=== PATIENT | male | born 1955 | race Caucasian/White ===

== ENCOUNTER → 2016-09-17 | Outpatient (CLI) | payer BC ==
[~2016-09-17] VITALS: Ht 188 cm; Wt 104.7 kg
[~2016-09-17] MED LIST: ASPI-435 PO; ATOR-24 PO; LEVO-14 PO; METO25TA56 PO; MULT-884 PO; NITR0.4S UT; POTA1TAB PO; RIVA1TAB4 PO; SIMV20TA5 PO
[2016-09-17 16:16] VITALS: BP 145/82; PULSE 55; Ht 188 cm; Wt 104.7 kg
== END | disposition home or self-care (01) ==
LOC: C.NEUR 14:57
PROVIDERS: ATTEND Internal Medicine Pulmonary Disease
DX: G47.30 Sleep apnea, unspecified (principal); J30.9 Allergic rhinitis, unspecified; I48.91 Unspecified atrial fibrillation

== ENCOUNTER → 2016-10-02 | Outpatient (CLI) | payer BC ==
[2016-10-02 12:57] LABS: MEAN CELL VOLUME 88.5 fL (80-100); MEAN CORPUSCULAR HEMOGLOBIN 29.8 pg (25-34); MEAN CORPUSCULAR HGB CONC 33.6 g/dl (32-36); MEAN PLATELET VOLUME 9.5 fL (7.4-10.4); PLATELET COUNT 225 K/uL (130-400); RED BLOOD COUNT 4.97 M/uL (4.7-6.1); WHITE BLOOD COUNT 5.13 K/uL (4.8-10.8)
[2016-10-02 13:07] LABS: CALCIUM 9.1 mg/dl (8.5-10.1)
[2016-10-02 13:14] LABS: ALT/SGPT 29 U/L (12-78); AST/SGOT 22 U/L (15-37); BLOOD UREA NITROGEN 16 mg/dl (7-18); BUN/CREATININE RATIO 13.1 (10-20); CARBON DIOXIDE 24 mmol/L (21-32); CHLORIDE 107 mmol/L (98-107); GLUCOSE 112 mg/dl (70-99); POTASSIUM 3.7 mmol/L (3.5-5.1); SODIUM 139 mmol/L (136-145)
== END | disposition home or self-care (01) ==
LOC: C.LABPVFM 10:36
PROVIDERS: ATTEND Internal Medicine Cardiovascular Disease
DX: E78.5 Hyperlipidemia, unspecified (principal); I48.91 Unspecified atrial fibrillation; I25.10 Atherosclerotic heart disease of native coronary artery without angina pectoris

== ENCOUNTER → 2017-05-11 | Outpatient (CLI) | payer OTHER ==
[2017-05-11 17:40] LABS: HEMATOCRIT 47.6 % (42-52); HEMOGLOBIN 16.2 g/dL (14.0-18.0); MEAN CELL VOLUME 91.2 fL (80-100); MEAN PLATELET VOLUME 9.9 fL (7.4-10.4); PLATELET COUNT 188 K/uL (130-400); RED CELL DISTRIBUTION WIDTH CV 13.5 % (11.5-14.5); RED CELL DISTRIBUTION WIDTH SD 44.6 fL (36.4-46.3)
[2017-05-11 19:23] LABS: ALT/SGPT 42 U/L (12-78); AST/SGOT 29 U/L (15-37); BLOOD UREA NITROGEN 17 mg/dl (7-18); CALCIUM 9.4 mg/dl (8.5-10.1); CARBON DIOXIDE 25 mmol/L (21-32); CHOLESTEROL 160 mg/dl (0-200); CREATININE 1.12 mg/dl (0.60-1.40); GLUCOSE 89 mg/dl (70-99); POTASSIUM 4.3 mmol/L (3.5-5.1); SODIUM 137 mmol/L (136-145)
[2017-05-11 19:26] LABS: LDL CHOLESTEROL CALCULATED 86 mg/dl
== END | disposition home or self-care (01) ==
LOC: C.LABPVFM 11:55
PROVIDERS: ATTEND Internal Medicine Cardiovascular Disease
DX: I48.91 Unspecified atrial fibrillation (principal); I77.810 Thoracic aortic ectasia; Z79.01 Long term (current) use of anticoagulants; I35.1 Nonrheumatic aortic (valve) insufficiency; I25.10 Atherosclerotic heart disease of native coronary artery without angina pectoris

== ENCOUNTER → 2017-09-20 | Outpatient (CLI) | payer OTHER ==
[~2017-09-20] VITALS: Ht 188 cm; Wt 105.3 kg
[2017-09-20 16:03] VITALS: BP 119/71; PULSE 54; Ht 188 cm; Wt 105.3 kg
== END | disposition home or self-care (01) ==
LOC: C.NEUR 15:03
PROVIDERS: ATTEND Internal Medicine Pulmonary Disease
DX: G47.30 Sleep apnea, unspecified (principal); I48.91 Unspecified atrial fibrillation; J30.9 Allergic rhinitis, unspecified

== ENCOUNTER 2020-04-15 22:13 | Observation (INO) ==
[2020-04-15] MEDS ORDERED: SODIUM CHLORIDE 0.9% 1000ML 1,000 ML IV ONE (22:25)
[2020-04-15] MEDS ORDERED: dilTIAZem HCl 5 MG/ML 5 ML VIAL IV STA (22:25)
[2020-04-15] MEDS ORDERED: STAT IV Infusion **Titration per Protocol STA (22:25)
[2020-04-15] MEDS ORDERED: dilTIAZem HCL 125 MG in DEXTROSE 5% 100 ML IV SCH (22:30)
[2020-04-15 22:35] LABS: Basophils # (auto) 0.01 K/uL (0-0.2); Basophils % (auto) 0.2 %; Eosinophils # (auto) 0.07 K/uL (0-0.5); Eosinophils % (auto) 1.2 %; Hematocrit (blood only) 46.7 % (42-52); Hemoglobin 16.2 g/dL (14.0-18.0); Immature Granulocytes # (auto) 0.02 K/uL (0.00-0.02); Immature Granulocytes % (auto) 0.3 %; Lymphocytes # (auto) 2.47 K/uL (1.2-3.4); Lymphocytes % (auto) 41.2 %; Mean Corpuscular Hgb Conc 34.7 g/dL (32-36); Mean Corpuscular Volume 89.3 fL (80-100); Mean Platelet Volume 10.8 fL (7.4-10.4); Monocytes # (auto) 0.57 K/uL (0.11-0.59); Monocytes % (auto) 9.5 %; Neutrophils # (auto) 2.85 K/uL (1.4-6.5); Neutrophils % (auto) 47.6 %; Platelet Count 195 K/uL (130-400); RDW Standard Deviation 42.5 fL (36.4-46.3); Red Blood Count 5.23 M/uL (4.7-6.1); White Blood Count 5.99 K/uL (4.8-10.8)
--- NOTE | 2020-04-15 22:38 | Emergency Department Note ---
Impression & Plan Atrial fibrillation with rapid ventricular response, Anticoagulant long-term use, Elevated troponin ED Provider Note NAME: YELITZA JACOBS AGE: 64 SEX: M : 1955 ARRIVES VIA: Ambulance INFORMANT: Patient ED PROVIDER(S): Chemo Zhao DO CHIEF COMPLAINT: Palpitations HPI: Patient is a 64-year-old male with a past medical history of A. fib, hyperlipidemia, dilated aortic root and CAD the presents the ER for dizziness and feeling his heart race. This occurred after playing tennis on the drive home. IV was established blood work was obtained. He has not had this since 2006 after he had an ablation. He has had a total of 2 ablations. He has been taking his rivaroxaban. He denies any headache or change in vision. No chest pain or shortness of breath. He does feel his heart racing. He has no dizziness now. No nausea vomiting or diarrhea. No dysuria, urgency or frequency. He admits to upper respiratory symptoms which occurred last week and now he only has some sinus congestion as everything has been improving and he no longer has a cough. ROS: See above HPI for pertinent positives & negatives. A total of 10 systems reviewed and were otherwise negative. PAST MEDICAL HISTORY:See Below PAST SURGICAL HISTORY:See Below FAMILY HISTORY:See Below SOCIAL HISTORY:See Below HOME MEDICATIONS:See Below ALLERGIES:See Below VITALS:See Below PHYSICAL EXAMINATION: GENERAL: Sitting up in bed, alert, well appearing, well nourished, no distress, non-toxic EYE EXAM: normal conjunctiva. OROPHARYNX: Mask in place LUNGS: Clear to auscultation. Normal chest wall mechanics HEART: Tachycardic and irregular regular, S1 normal and S2 normal ABDOMEN: abdomen soft, non-tender, normo-active bowel sounds, no masses, no rebound or guarding. BACK: Back is symmetrical on inspection and there is no deformity, no midline tenderness, no CVA tenderness. SKIN: no rashes and no bruising UPPER EXTREMITIES: upper extremities are grossly normal. LOWER EXTREMITIES: No pitting edema. NEURO EXAM: Normal sensorium, cranial nerves II-XII grossly intact, normal spe ech, no gross weakness of arms, no gross weakness of legs. MEDICAL DECISION MAKING: Patient is a 64-year-old male who presents the ER with past medical history of 2 ablations that feels as though he is in A. fib. Upon presentation he is found to be in A. fib with RVR. I received medical command call. We gave him a bolus of Cardizem via medical command and then rebolused him with a dose of Cardizem while in the ER and placed on a Cardizem drip. Heart rate trended down to the 70s to 80s. IV was established blood work was obtained. Labs show no significant leukocytosis or anemia. INR unremarkable. BMP with slightly elevated glucose. Troponin was elevated 0.084. He had respiratory symptoms last week and not improving and is Covid positive. Chest x-ray with multifocal pneumonia in the right lower lobe. He has no respiratory symptoms. EKG did show A. fib RVR. He was updated at bedside. Discussed with the hospitalist for further evaluation. Triage Nursing notes reviewed. Prior medical records reviewed Vital Signs: reviewed and remarkable for tachy and HTN Differential diagnosis: Differential diagnoses includes but is not limited to acute coronary syndrome, myocardial infarction, pericarditis, pulmonary embolus, aortic dissection, pneumonia, pneumothorax, musculoskeletal, shingles, esophageal. ER treatment provided: See below Diagnostics interpreted by me: ECG: A. fib RVR weight of 159 Normal axis No PVCs QTC 465 Cardiac Monitoring: An order was placed for continuous cardiac monitoring. The monitor shows a rate of 154 with A. fib RVR rhythm. Laboratory studies: As stated above and show below. Imaging studies: Portable AP upright 1 view of the chest shows infiltrates in the right lower lobe. No pneumothorax Consultation(s): Discussed with Dr. Sergo Parker for further evaluation ED COURSE: Procedures: none Critical Care: I have personally spent 32 minutes of critical care time in the direct management of this patient. This includes bedside care, interpretation of diagnostic studies, and testing, discussion with consultants, patient, and family members, and other required patient management activities. This 32 minutes is in excess of all separately billable procedures. Past Med/Surg History Medical History (Updated 04/16/20 @ 00:28 by Chemo Zhao DO) Anticoagulant long-term use Aortic regurgitation Atrial fibrillation CAD in [place] artery Dilated aortic root Hyperlipidemia (06/11/12) Severe obstructive sleep apnea Surgical History S/P tonsillectomy Status post catheter ablation of atrial fibrillation Family History Family/Other No pertinent family history Social History Smoking Status: Never smoker Second Hand Exposure: No; Preferred Language: Hong Konger Feels Safe at Home: Yes Allergies Allergies Allergy/AdvReac Type Severity Reaction Status Date / Time amiodarone AdvReac Severe . Verified 04/16/20 00:03 Home Meds Home Medications Medication Instructions Recorded Confirmed multivitamin 1 tab PO DAILY 12/20/18 04/16/20 nitroglycerin 0.4 mg sublingual 0.4 mg SL Q5M PRN #25 tab 12/20/18 04/16/20 tablet aspirin [Aspirin Low Dose] 81 mg PO DAILY 04/16/20 04/16/20 Previous Rx's Medication Instructions Recorded levocetirizine 5 mg tablet 5 mg PO DAILY #90 tab 08/09/19 rivaroxaban 20 mg tablet 20 mg PO DAILY #90 tab 11/22/19 montelukast 10 mg tablet 10 mg PO DAILY #90 tab 12/07/19 atorvastatin 40 mg tablet 40 mg PO QPM #90 tab 12/25/19 metoprolol tartrate 25 mg tablet 25 mg PO BID #180 tab 02/03/20 Results & Data (ED) Vital Signs Vital Signs - 24 hr 04/15/20 22:33 04/15/20 23:00 04/15/20 23:01 Temperature 36.8 C Temperature Source Oral Pulse Rate 132 H 112 H 114 H Pulse Rate from SpO2 Sensor 110 H 93 H Respiratory Rate 24 14 12 Respiratory Effort / Characteristics Non-Labored Spontaneous Respiratory Depth Normal Blood Pressure 151/132 H 73/67 L 111/70 Blood Pressure Mean 138 70 103 Pulse Oximetry 96 95 95 Oxygen Delivery Method Room Air Sepsis Recent Fever Within 48 Hours No Sepsis New/Unexplained Change in Mental Status No Sepsis Action Taken by Nursing No Action Required 04/15/20 23:02 04/15/20 23:15 04/15/20 23:26 Temperature Temperature Source Pulse Rate 90 79 126 H Pulse Rate from SpO2 Sensor 117 H 78 Respiratory Rate 12 18 20 Respiratory Effort / Characteristics Respiratory Depth Blood Pressure 102/70 Blood Pressure Mean 79 Pulse Oximetry 95 95 Oxygen Delivery Method Sepsis Recent Fever Within 48 Hours Sepsis New/Unexplained Change in Mental Status Sepsis Action Taken by Nursing Laboratory Data Result diagrams: 04/15/20 22:22 04/15/20 22:22 Lab Results 04/15/20 04/15/20 04/15/20 Range/Units 22:22 22:22 22:22 WBC 5.99 (4.8-10.8) K/uL RBC 5.23 (4.7-6.1) M/uL Hgb 16.2 (14.0-18.0) g/dL Hct 46.7 (42-52) % MCV 89.3 (80-100) fL MCH 31.0 (25-34) pg MCHC 34.7 (32-36) g/dL RDW Std Deviation 42.5 (36.4-46.3) fL RDW Coeff of Evi 13.0 (11.5-14.5) % Plt Count 195 (130-400) K/uL MPV 10.8 H (7.4-10.4) fL Immature Gran % (Auto) 0.3 % Neut % (Auto) 47.6 % Lymph % (Auto) 41.2 % [place] % (Auto) 9.5 % Eos % (Auto) 1.2 % Baso % (Auto) 0.2 % Neut # (Auto) 2.85 (1.4-6.5) K/uL Lymph # (Auto) 2.47 (1.2-3.4) K/uL [place] # (Auto) 0.57 (0.11-0.59) K/uL Eos # (Auto) 0.07 (0-0.5) K/uL Baso # (Auto) 0.01 (0-0.2) K/uL Immature Gran # (Auto) 0.02 (0.00-0.02) K/uL PT 11.0 (9.0-12.0) Seconds INR 1.0 (0.9-1.1) APTT 29.6 (21.0-31.0) Seconds PTT Ratio 1.1 Sodium 138 (136-145) mmol/L Potassium (3.5-5.1) mmol/L Chloride 107 (98-107) mmol/L Carbon Dioxide 22 (21-32) mmol/L Anion Gap 10.0 (3-11) BUN 19 H (7-18) mg/dl Creatinine 1.12 (0.6-1.4) mg/dl Est Cr Clr Drug Dosing 82.8 ml/min Est GFR ( Amer) 78.9 Est GFR (Non-Af Amer) 68.1 BUN/Creatinine Ratio 17.1 (10-20) Glucose 156 H (70-99) mg/dl Calcium 9.2 (8.5-10.1) mg/dl Total Bilirubin 0.7 (0.2-1) mg/dl AST (15-37) U/L ALT 33 (12-78) U/L Alkaline Phosphatase 117 (45-117) U/L Troponin I 0.084 H* (0-0.045) ng/ml Total Protein 7.9 (6.4-8.2) gm/dl Albumin 3.6 (3.4-5.0) gm/dl Globulin 4.3 H (2.5-4.0) gm/dl Albumin/Globulin Ratio 0.8 L (0.9-2) Lipase 134 (73-393) U/L COVID-19 Eval Order SARS-CoV-2, RNA, NAAT (NEGATIVE) 04/15/20 04/15/20 Range/Units 22:23 22:23 WBC (4.8-10.8) K/uL RBC (4.7-6.1) M/uL Hgb (14.0-18.0) g/dL Hct (42-52) % MCV (80-100) fL MCH (25-34) pg MCHC (32-36) g/dL RDW Std Deviation (36.4-46.3) fL RDW Coeff of Evi (11.5-14.5) % Plt Count (130-400) K/uL MPV (7.4-10.4) fL Immature Gran % (Auto) % Neut % (Auto) % Lymph % (Auto) % [place] % (Auto) % Eos % (Auto) % Baso % (Auto) % Neut # (Auto) (1.4-6.5) K/uL Lymph # (Auto) (1.2-3.4) K/uL [place] # (Auto) (0.11-0.59) K/uL Eos # (Auto) (0-0.5) K/uL Baso # (Auto) (0-0.2) K/uL Immature Gran # (Auto) (0.00-0.02) K/uL PT (9.0-12.0) Seconds INR (0.9-1.1) APTT (21.0-31.0) Seconds PTT Ratio Sodium (136-145) mmol/L Potassium (3.5-5.1) mmol/L Chloride (98-107) mmol/L Carbon Dioxide (21-32) mmol/L Anion Gap (3-11) BUN (7-18) mg/dl Creatinine (0.6-1.4) mg/dl Est Cr Clr Drug Dosing ml/min Est GFR ( Amer) Est GFR (Non-Af Amer) BUN/Creatinine Ratio (10-20) Glucose (70-99) mg/dl Calcium (8.5-10.1) mg/dl Total Bilirubin (0.2-1) mg/dl AST (15-37) U/L ALT (12-78) U/L Alkaline Phosphatase (45-117) U/L Troponin I (0-0.045) ng/ml Total Protein (6.4-8.2) gm/dl Albumin (3.4-5.0) gm/dl Globulin (2.5-4.0) gm/dl Albumin/Globulin Ratio (0.9-2) Lipase (73-393) U/L [facility], RNA, NAAT POSITIVE A* (NEGATIVE) Administered Medications Discontinued Medications Diltiazem HCl (Diltiazem Hcl 5 Mg/Ml 5 Ml Vial) 15 mg IV NOW STA Stop: 04/15/20 22:26 Last Admin: 04/15/20 22:47 Dose: 15 mg Documented by: [id number] Cosigned by: [id number] Diltiazem HCl 125 mg/ Dextrose 125 mls @ 5 mls/hr IV .Q24H [facility]; Protocol Stop: 05/15/20 22:29 Last Admin: 04/15/20 22:47 Dose: 5 mg/hr, 5 mls/hr Documented by: [id number] Cosigned by: [id number] Sodium Chloride (Nss 1000ml) 1,000 mls @ 999 mls/hr IV .Q1H1M ONE Stop: 04/15/20 23:25 Last Admin: 04/15/20 22:47 Dose: 999 mls/hr Documented by: [id number] Miscellaneous (Stat Iv Infusion Titration Per Protocol) 1 ea N/A NOW STA Stop: 04/15/20 22:26 Last Admin: 04/15/20 22:48 Dose: Not Given Documented by: [id number] Discharge Plan Visit Data Chief Complaint: Cardiac Assessment Stated Complaint: TACHYCARDIA ED Provider: Chemo Zhao Discharge Problem: Atrial fibrillation with rapid ventricular response, Anticoagulant long-term use, Elevated troponin Forms Stand Alone Forms: [facility] Prescriptions Prescriptions: No Action levocetirizine 5 mg tablet 5 mg PO DAILY Qty: 90 RF: 3 rivaroxaban 20 mg tablet 20 mg PO DAILY Qty: 90 RF: 3 atorvastatin 40 mg tablet 40 mg PO QPM Qty: 90 RF: 3 metoprolol tartrate 25 mg tablet 25 mg PO BID Qty: 180 RF: 3 nitroglycerin 0.4 mg tablet, sublingual 0.4 mg SL Q5M PRN (Reason: chest pain) Qty: 25 RF: 0 multivitamin [Daily Multi-Vitamin] tablet 1 tab PO DAILY RF: 0 montelukast 10 mg tablet 10 mg PO DAILY Qty: 90 RF: 3 aspirin [Aspirin Low Dose] 81 mg Tablet,Delayed Release (Dr/Ec) 81 mg PO DAILY RF: 0
[2020-04-15 23:05] LABS: Albumin Globulin Ratio 0.8 (0.9-2); Albumin Level 3.6 gm/dl (3.4-5.0); BUN Creatinine Ratio 17.1 (10-20); Bilirubin,Total 0.7 mg/dl (0.2-1); Calcium 9.2 mg/dl (8.5-10.1); Creatinine Clr Calc Pharmacy 82.8 ml/min; Est GFR (African American) 78.9; Est GFR (Non-African American) 68.1; Globulin 4.3 gm/dl (2.5-4.0); Total Protein 7.9 gm/dl (6.4-8.2); Troponin I 0.084 ng/ml (0-0.045)
[2020-04-15 23:06] LABS: Partial Thromboplastin Ratio 1.1; Partial Thromboplastin Time 29.6 Seconds (21.0-31.0)
--- NOTE | 2020-04-16 00:56 | History & Physical Report ---
Date of Service April 16, 2020 Assessment & Plan (1) Atrial fibrillation with rapid ventricular response: Atrial fibrillation with rapid ventricular response/elevated troponin/CAD/long-term anticoagulant use/dilated aortic root- The patient will be admitted to telemetry for serial cardiac enzymes, serial EKG's, cardiac rhythm monitoring and a 2-D echocardiogram with Dopplers. Patient had been given Cardizem bolus and started on Cardizem drip 5 mg/h per the ED. Discontinue Cardizem drip Continue Xarelto 20 mg daily Resume metoprolol tartrate 25 mg p.o. twice daily, with as needed Lopressor 2.5 mg IV every 4 hours as needed heart rate greater than 110. Consult his instructor business education Dr. Covarrubias Present on Admission?: Yes (2) Lab test positive for detection of COVID-19 virus: Even though patient has not overtly symptomatic. His pulse ox is 94% on room air. Chest x-ray does suggest bilateral infiltrates. Will place on Decadron 6 mg IV every morning, with first dose now Suspect the physiologic stress this infection may have had tilted him over into A. fib with RVR Present on Admission?: Yes (3) Elevated troponin: See above Present on Admission?: Yes (4) Anticoagulant long-term use: See above Present on Admission?: Yes (5) CAD in [place] artery: See above Present on Admission?: Yes (6) Severe obstructive sleep apnea: CPAP at bedtime as needed Present on Admission?: Yes (7) Hyperlipidemia: Continue atorvastatin 40 mg every evening Present on Admission?: Yes (8) Allergic rhinitis: Continue levocetirizine Present on Admission?: Yes History of Present Illness Chief Complaint: The patient presents to the emergency department with palpitations Primary Care Provider: Waleska Shepherd MD The patient is a 64-year-old male with a past medical history including atrial fibrillation, hyperlipidemia, dilated aortic root, CAD, on chronic anticoagulation, severe ZOE, allergic rhinitis, and status post cardiac ablation in 2012. He presents to the emergency department with complaint of lightheadedness, dizziness and sensation of heart racing that occurred on his drive home after playing tennis. Reports he has not had any of these symptoms since his ablation in 2012. He has been taking his Xarelto as directed, he did take his metoprolol tartrate on time this morning. He has noted more sinus congestion than usual, and reports having to blow his nose hard this morning to clear his ears. Allergies Allergy/AdvReac Type Severity Reaction Status Date / Time amiodarone AdvReac Severe . Verified 04/16/20 00:03 Home Medications Medication Instructions Recorded Confirmed Type multivitamin 1 tab PO DAILY 12/20/18 04/16/20 History nitroglycerin 0.4 mg sublingual 0.4 mg SL Q5M PRN #25 tab 12/20/18 04/16/20 History tablet levocetirizine 5 mg tablet 5 mg PO DAILY #90 tab 08/09/19 04/16/20 Rx rivaroxaban 20 mg tablet 20 mg PO DAILY #90 tab 11/22/19 04/16/20 Rx montelukast 10 mg tablet 10 mg PO DAILY #90 tab 12/07/19 04/16/20 Rx atorvastatin 40 mg tablet 40 mg PO QPM #90 tab 12/25/19 04/16/20 Rx metoprolol tartrate 25 mg tablet 25 mg PO BID #180 tab 02/03/20 04/16/20 Rx aspirin [Aspirin Low Dose] 81 mg PO DAILY 04/16/20 04/16/20 History Past Med/Surg History Medical History (Updated 04/16/20 @ 04:05 by Sergo Pearson MD) Anticoagulant long-term use Aortic regurgitation Atrial fibrillation CAD in [place] artery Dilated aortic root Hyperlipidemia (06/11/12) Severe obstructive sleep apnea Surgical History S/P tonsillectomy Status post catheter ablation of atrial fibrillation Family History Family/Other No pertinent family history Social History Smoking Status: Never smoker Second Hand Exposure: No; Preferred Language: Syriac Feels Safe at Home: Yes Review of Systems Review of Systems: The patient denies chest pain, cough, lower extremity swell ing, sore throat, fevers, chills, sweats, fatigue, nausea, vomiting, diarrhea , constipation, abdominal pain, pelvic pain, blood in urine or stool, dysuria, urinary frequency or urgency, memory loss, loss of consciousness, rash, abnormal bruising or bleeding, imbalance, focal or generalized weakness, numbness or tingling in arms or legs, generalized arthralgias or myalgias, back or neck pain, or night sweats. The review of systems is otherwise negative other than for that already noted above, and at least 10 systems have been reviewed. Physical Exam Physical Exam: The patient is awake, alert and oriented 3, well developed and well nourished, normocephalic and atraumatic, lying in bed and in no acute distress. HEENT--PERRL, EOMI, mucous membranes and oropharynx normal. Neck--supple. No JVD. No bruits. Thyroid normal, trachea midline, no adenopathy. Heart--irregularly irregular no murmurs, rubs or gallops. Lungs--clear bilaterally, no respiratory distress, no accessory muscle use. Abdomen--normal bowel sounds and soft. Nontender. Nondistended, no hernias or masses, no organomegaly. Extremities--no cyanosis or clubbing. No edema. Dermatologic--normal skin turgor, normal color, no abnormal lymph nodes, no rash. Neurologic--cranial nerves II through XII grossly intact. Rheumatologic--normal range of motion. Psychiatric--normal affect. Results & Data Results & Data ([facility]) Vital Signs (Past 12 Hours) Vital Signs Temp Pulse Resp BP Pulse Ox 04/15/20 23:26 126 H 20 102/70 95 04/15/20 23:15 79 18 04/15/20 23:02 90 12 95 04/15/20 23:01 114 H 12 111/70 95 04/15/20 23:00 112 H 14 73/67 L 95 04/15/20 22:33 98.2 F 132 H 24 151/132 H 96 Laboratory Results Laboratory Results WBC 5.99 K/uL (4.8-10.8) 04/15/20 22:22 RBC 5.23 M/uL (4.7-6.1) 04/15/20 22:22 Hgb 16.2 g/dL (14.0-18.0) 04/15/20 22:22 Hct 46.7 % (42-52) 04/15/20 22:22 MCV 89.3 fL (80-100) 04/15/20 22:22 MCH 31.0 pg (25-34) 04/15/20 22: MCHC 34.7 g/dL (32-36) 04/15/20 22: RDW Std Deviation 42.5 fL (36.4-46.3) 04/15/20: RDW Coeff of Evi 13.0 % (11.5-14.5) 04/15/20 22: Plt Count 195 K/uL (130-400) 04/15/20: MPV 10.8 fL (7.4-10.4) H 04/15/20 22:22 Immature Gran % (Auto) 0.3 % 04/15/20: Neut % (Auto) 47.6 % 04/15/20: Lymph % (Auto) 41.2 % 04/15/20: [place] % (Auto) 9.5 % 04/15/20: Eos % (Auto) 1.2 % 04/15/20: Baso % (Auto) 0.2 % 04/15/20: Neut # (Auto) 2.85 K/uL (1.4-6.5) 04/15/20 22: Lymph # (Auto) 2.47 K/uL (1.2-3.4) 04/15/20 22:22 [place] # (Auto) 0.57 K/uL (0.11-0.59) 04/15/20 22: Eos # (Auto) 0.07 K/uL (0-0.5) 04/15/20: Baso # (Auto) 0.01 K/uL (0-0.2) 04/15/20: Immature Gran # (Auto) 0.02 K/uL (0.00-0.02) 04/15/20: PT 11.0 Seconds (9.0-12.0) 04/15/20: INR 1.0 (0.9-1.1) 04/15/20: APTT 29.6 Seconds (21.0-31.0) 04/15/20: PTT Ratio 1.1 04/15/20 22: Sodium 138 mmol/L (136-145) 04/15/20 22: Potassium 3.8 mmol/L (3.5-5.1) 04/16/20 00:18 Chloride 107 mmol/L (98-107) 04/15/20 22:22 Carbon Dioxide 22 mmol/L (21-32) 04/15/20 22:22 Anion Gap 10.0 (3-11) 04/15/20 22:22 BUN 19 mg/dl (7-18) H 04/15/20 22:22 Creatinine 1.12 mg/dl (0.6-1.4) 04/15/20 22:22 Est Cr Clr Drug Dosing 82.8 ml/min 04/15/20 22:22 Est GFR ( Amer) 78.9 04/15/20 22:22 Est GFR (Non-Af Amer) 68.1 04/15/20 22:22 BUN/Creatinine Ratio 17.1 (10-20) 04/15/20 22:22 Glucose 156 mg/dl (70-99) H 04/15/20 22:22 Calcium 9.2 mg/dl (8.5-10.1) 04/15/20 22:22 Total Bilirubin 0.7 mg/dl (0.2-1) 04/15/20 22:22 AST 29 U/L (15-37) 04/16/20 00:18 ALT 33 U/L (12-78) 04/15/20 22:22 Alkaline Phosphatase 117 U/L (45-117) 04/15/20 22:22 Troponin I 0.084 ng/ml (0-0.045) H* 04/15/20 22:22 Total Protein 7.9 gm/dl (6.4-8.2) 04/15/20 22:22 Albumin 3.6 gm/dl (3.4-5.0) 04/15/20 22:22 Globulin 4.3 gm/dl (2.5-4.0) H 04/15/20 22:22 Albumin/Globulin Ratio 0.8 (0.9-2) L 04/15/20 22:22 Lipase 134 U/L (73-393) 04/15/20 22:22 COVID-19 Eval Order Covid19 [facility] 04/15/20 22:23 SARS-CoV-2, RNA, NAAT POSITIVE (NEGATIVE) A* 12/08/20 22:23 Blood Type O Positive 04/16/20 00:18 Antibody Screen NEGATIVE 04/16/20 00:18 Code Status & VTE Plan Code Status Full code VTE Prophylaxis Plan VTE Prophylaxis will be ordered: Yes PG Care Time/CCT Total # of Minutes Spent Total Time Spent with Patient: Total time spent is greater than 50% in coordination of care (as documented) at patient's floor/unit and/or counseling patient: Coding Level of Care Code 79551 OBS Care - Level 3 Diagnoses Atrial fibrillation with rapid ventricular response I48.91 Lab test positive for detection of COVID-19 virus U07.1 Elevated troponin R77.8 Anticoagulant long-term use Z79.01 CAD in [place] artery I25.10 Severe obstructive sleep apnea G47.33 Hyperlipidemia E78.5 Allergic rhinitis J30.9
[2020-04-16 01:03] LABS: Potassium 3.8 mmol/L (3.5-5.1)
[2020-04-16] MEDS ORDERED: DEXAMETHASONE SOD INJ 10 MG/ML VIAL IV STA (01:03)
[2020-04-16] MEDS ORDERED: METOPROLOL TARTRATE 1 MG/ML VIAL IV ONE (02:11)
[2020-04-16] MEDS ORDERED: METOPROLOL TARTRATE 1 MG/ML VIAL IV PRN (02:19)
[2020-04-16] MEDS ORDERED: METOPROLOL TARTRATE 25 MG TAB PO ONE (02:30)
--- NOTE | 2020-04-16 06:51 | XRay Report ---
XR chest 1V portable HISTORY: 64 years-old Male Chest Pain acute atypical chest pain COMPARISON: Chest radiograph 02/28/2013 TECHNIQUE: Portable AP view of the chest FINDINGS: Cardiac silhouette is upper limits of normal in size. No pneumothorax, pleural effusion or overt pulm onary edema. Subtle ill-defined right lung base opacities. Degenerative changes of the shoulders and spine. IMPRESSION: Subtle ill-defined right lung base opacities may be secondary to summation density howeve r atelectasis or pneumonitis could appear similarly. ACT 112: Negative or not required by law. The above report was generated using voice recognition software. It may contain grammatical, syntax o r spelling errors. Electronically signed by: Thaddeus Moffett M.D. 04/16/2020 6:49 AM
[2020-04-16] MEDS ORDERED: DEXAMETHASONE SOD INJ 4 MG/ML VIAL IV SCH (09:00)
[2020-04-16] MEDS ORDERED: DEXAMETHASONE SOD PHOSPHATE 6 MG in SYRINGE 0 ML IV SCH (09:00)
--- NOTE | 2020-04-16 10:24 | XRay Report ---
XR chest 1V portable CLINICAL HISTORY: Abnormal chest x-ray. COVID POSITIVE PATIENT COMPARISON STUDY: 04/15/2020 FINDINGS: The cardiac and mediastinal contours remain stable. The previously queried right midlung zo ne opacity is not identified on the current study. There is no focal pulmonary consolidation. There i s no failure. There are no pleural effusions.[ IMPRESSION: No active disease in the chest. ACT 112: Negative or not required by law. Electronically signed by: Carlos Chance M.D. 04/16/2020 10:22 AM
[2020-04-16 10:45] LABS: BUN Creatinine Ratio 15.5 (10-20); Calcium 9.1 mg/dl (8.5-10.1); Creatinine Clr Calc Pharmacy 98.7 ml/min; Est GFR (African American) 97.5; Est GFR (Non-African American) 84.2; Magnesium 2.4 mg/dl (1.8-2.4); Potassium 4.2 mmol/L (3.5-5.1)
[2020-04-16 10:56] LABS: Troponin I 0.165 ng/ml (0-0.045)
--- NOTE | 2020-04-16 13:51 | Electrocardiogram Report ---
Test Reason : Blood Pressure : / mmHG Vent. Rate : 159 BPM Atrial Rate : 166 BPM P-R Int : 000 ms QRS Dur : 090 ms QT Int : 286 ms P-R-T Axes : 000 004 044 degrees QTc Int : 465 ms Probable Sinus tachycardia Possible Inferior infarct , age undetermined Abnormal ECG When compared with ECG of 01-MAR-2013 06:32, Vent. rate has increased BY 103 BPM Borderline criteria for Inferior infarct are now Present Confirmed by Dylan Porras ([id number]) on 04/16/2020 1:50:39 PM Referred By: REFERRED SELF Confirmed By:Dylan Porras
--- NOTE | 2020-04-16 13:53 | Electrocardiogram Report ---
Test Reason : Blood Pressure : / mmHG Vent. Rate : 071 BPM Atrial Rate : 071 BPM P-R Int : 210 ms QRS Dur : 098 ms QT Int : 384 ms P-R-T Axes : 062 014 031 degrees QTc Int : 417 ms Sinus rhythm with 1st degree A-V block Inferior infarct (cited on or before 15-APR-2020) Abnormal ECG When compared with ECG of 15-APR-2020 22:20, (unconfirmed) Sinus rhythm has replaced Atrial fibrillation Vent. rate has decreased BY [address] no longer depressed in Lateral leads Confirmed by Dylan Porras ([id number]) on 04/16/2020 1:53:18 PM Referred By: REFERRED SELF Confirmed By:Dylan Porras
[2020-04-16] MEDS ORDERED: NITROGLYCERIN SL 0.4 MG/TAB TAB SL PRN ×2 (14:18)
[2020-04-16] MEDS ORDERED: ONDANSETRON INJ 2 MG/ML 2 ML VIAL IV PRN (14:18)
[2020-04-16] MEDS ORDERED: ALUMINUM/MAGNESIUM SUSP 30 ML UDC PO PRN (14:18)
[2020-04-16] MEDS ORDERED: METOPROLOL TARTRATE 1 MG/ML VIAL IV SCH (14:18)
[2020-04-16] MEDS ORDERED: MAGNESIUM HYDROXIDE SUSP 30 ML UDC PO PRN (14:18)
[2020-04-16] MEDS ORDERED: ACETAMINOPHEN 325 MG TAB PO PRN (14:18)
[2020-04-16] MEDS ORDERED: METOPROLOL TARTRATE 25 MG TAB PO SCH ×2 (14:18→15:00)
[2020-04-16] MEDS ORDERED: MONTELUKAST SODIUM 10 MG TABLET PO SCH (15:00)
[2020-04-16] MEDS ORDERED: ASPIRIN 81 MG ECTAB PO SCH (15:00)
[2020-04-16] MEDS ORDERED: MULTIVITAMIN TAB PO SCH (15:00)
[2020-04-16] MEDS ORDERED: RIVAROXABAN 20 MG TAB PO SCH (15:00)
[2020-04-16] MEDS ORDERED: CETIRIZINE HCL 10 MG TABLET PO SCH (15:00)
--- NOTE | 2020-04-16 17:33 | Discharge Summary ---
Date of Service April 16, 2020 Admission HPI Per Admitting Provider The patient is a 64-year-old male with a past medical history including atrial fibrillation, hyperlipidemia, dilated aortic root, CAD, on chronic anticoagulation, severe ZOE, allergic rhinitis, and status post cardiac ablation in 2012. He presents to the emergency department with complaint of lightheadedness, dizziness and sensation of heart racing that occurred on his drive home after playing tennis. Reports he has not had any of these symptoms since his ablation in 2012. He has been taking his Xarelto as directed, he did take his metoprolol tartrate on time this morning. He has noted more sinus congestion than usual, and reports having to blow his nose hard this morning to clear his ears. Admission Exam Per Admitting Provider The patient is awake, alert and oriented 3, well developed and well nourished, normocephalic and atraumatic, lying in bed and in no acute distress. HEENT--PERRL, EOMI, mucous membranes and oropharynx normal. Neck--supple. No JVD. No bruits. Thyroid normal, trachea midline, no adenopathy. Heart--irregularly irregular no murmurs, rubs or gallops. Lungs--clear bilaterally, no respiratory distress, no accessory muscle use. Abdomen--normal bowel sounds and soft. Nontender. Nondistended, no hernias or masses, no organomegaly. Extremities--no cyanosis or clubbing. No edema. Dermatologic--normal skin turgor, normal color, no abnormal lymph nodes, no rash. Neurologic--cranial nerves II through XII grossly intact. Rheumatologic--normal range of motion. Psychiatric--normal affect. Principal Diagnosis Atrial fibrillation with rapid ventricular response COVID-19 positive Discharge Exam GENERAL : No acute distress EYES: No icterus, gaze conjugate NOSE: No evidence of epistaxis MOUTH: No lesions or candidiasis. Mucosa is moist NECK: Supple LUNGS: CTA B/L, no wheezes, rales or rhonchi. Chest x-ray reviewed as well which is also clear HEART: Regular, rate controlled ABDOMEN: Soft, NT, ND, BS Present EXTREMITIES: No LE edema, pedal pulses intact NEURO: A&OX3 Discharge Data Allergies Allergy/AdvReac Type Severity Reaction Status Date / Time amiodarone AdvReac Severe . Verified 04/16/20 00:03 Consultations 04/15/20 23:16 ED Decision to Admit Stat 04/16/20 14:18 Consult Cardiology Routine Consult Case Management - Discharge Planning Routine Procedures Performed XR chest 1V portable 04/16/2020 CLINICAL HISTORY: Abnormal chest x-ray. COVID POSITIVE PATIENT COMPARISON STUDY: 04/15/2020 FINDINGS: The cardiac and mediastinal contours remain stable. The previously queried right midlung zone opacity is not identified on the current study. There is no focal pulmonary consolidation. There is no failure. There are no pleural effusions.[ IMPRESSION: No active disease in the chest. Electronically signed by: Carlos Chance M.D. 04/16/2020 10:22 AM Ordered Studies 04/15/20 22:22 04/16/20 10:08 04/15/20 04/16/20 04/16/20 22:22 10:08 15:39 Troponin I 0.084 H* 0.165 H* 0.141 H* Hospital Course (1) Atrial fibrillation with rapid ventricular response: Patient presented with atrial fibrillation with a heart rate around 160 He was started on diltiazem and continued on his Lopressor 25 mg p.o. twice daily A little bit after 2 AM he converted to normal sinus rhythm after receiving his Lopressor and remained in normal sinus rhythm until discharge On discharge the patient's metoprolol tartrate was increased from 25 mg p.o. twice daily to 37.5 mg p.o. twice daily. The patient was encouraged to follow- up with Dr. Cai within 5 to 7 days. Patient no chest pain but did have an elevated troponin. There were no specific changes on EKG (2) Elevated troponin: Troponin on admission was 0.084. This increased to 0.165 on repeat labs the following morning which was the plateau. 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 He did not receive any remdesivir or convalescent plasma while in the hospital He did receive dexamethasone 6 mg and will be continued on this at home for total of 10 days An Rx was given to the patient for 9 tablets and he was instructed to take them daily until gone Patient had no hypoxia Patient was given handouts for Covid care at home Follow supportively with PCP (4) CAD in [place] artery: Lopressor increased to 37.5 mg p.o. twice daily Continue aspirin, atorvastatin (5) Hyperlipidemia: Continue atorvastatin (6) Severe obstructive sleep apnea: Patient does have CPAP at home at 10 cm of water which she was instructed to continue Advised the patient to sleep in a separate room from his in as much as if he gets a mask leak he can aerosolize COVID-19 virus (7) Anticoagulant long-term use: Continue Xarelto Total Time Total Time Spent Total Time Spent (In Minutes): 40 Total Time Includes: Examination of the Patient, Discharge Planning, Medication Reconciliation and Communication With Other Providers Discharge Plan Discharge Items Patient Disposition: Home - Self-Care Reason For Visit: ATRIAL FIB WITH RVR Discharge Diagnosis: Atrial fibrillation with rapid ventricular response COVID-19 Activity: As commented below Activity Comment: No tennis or exertional exercise until cleared by cardiology Lifting: Gradually increase as tolerated Bathing: No limitations Sexual Activity: When tolerated Exercise/Sports: Wait until after follow-up appointment Driving/Machine Use: Resume 1 day after discharge Weightbearing: Full weightbearing Non-emergency contact: Primary Care Provider Call non-emergency contact if: you have any medication questions and your s ymptoms worsen Follow-up/Referrals: Waleska Shepherd MD [Primary Care Provider] - Diet: Heart Healthy Addtl Attending Provider Instructions: You were admitted with atrial fibrillation and found to be with rapid ventricular rate. You received diltiazem in the hospital. This will not be continued on discharge. You should continue with your metoprolol tartrate (Lopressor) but with an increased dose of 1-1/2 pills twice daily (37.5 mg 2 times daily). You currently are in normal sinus rhythm and converted early this morning with your dose of Lopressor. Please follow-up with Dr. Cai within the next 5 to 7 days for medication adjustment. It is also very important that you continue with your anticoagulation. You had an elevated troponin which is an enzyme released by the heart when there is demand or injury. Is very difficult to see if there are any changes to your EKG since you were in atrial fibrillation. Your final troponin showed that this number was starting to decrease which means you are having less troponin released from the muscle. Please follow-up with your radio antenna installer within the next 5 to 7 days for further management. Regarding your COVID-19 diagnosis, you will be continued on dexamethasone (Decadron) 6 mg by mouth for another 9 days so you complete a total of 10 days of steroids. You have not required any supplemental oxygen and do not meet requirements for antiviral medications. Your chest x-ray on admission as well is your repeat chest x-ray today shows no pneumonia or other active disease within the chest. Patients with COVID-19 can develop rapid shortness of breath. If you should develop worsening symptoms including shortness of breath or high fever, see your primary care physician for repeat chest x-ray or report to the emergency department for further evaluation treatment. You should isolate at home and should not go anywhere outside of the home for 14 days. When caring for your , she should wear procedure mask and you should wear your N95 mask. Both you and your should wash your hands frequently and use separate bathrooms of possible. Wash countertops and other solid surfaces frequently. Please refer to the CDC (Centers for Disease Control) for further recommenda tions regarding COVID-19. You should sleep in a separate bedroom from your . This is especially true since you use CPAP which can create aerosolization of your Covid virus. Continue to use your CPAP with usual settings. If you have not enrolled in the [facility] patient portal, this is recommended. You can schedule appointments and send messages to your providers to facilitate care. Pending Studies at Discharge: No Stand-Alone Forms: My [facility] Medications and DC Order Prescriptions: New metoprolol tartrate 37.5 mg tablet 37.5 mg PO BID Qty: 30 RF: 0 dexamethasone [Decadron] 6 mg tablet 6 mg PO DAILY Qty: 9 RF: 0 Continued levocetirizine 5 mg tablet 5 mg PO DAILY Qty: 90 RF: 3 rivaroxaban 20 mg tablet 20 mg PO DAILY Qty: 90 RF: 3 atorvastatin 40 mg tablet 40 mg PO QPM Qty: 90 RF: 3 nitroglycerin 0.4 mg tablet, sublingual 0.4 mg SL Q5M PRN (Reason: chest pain) Qty: 25 RF: 0 multivitamin [Daily Multi-Vitamin] tablet 1 tab PO DAILY RF: 0 montelukast 10 mg tablet 10 mg PO DAILY Qty: 90 RF: 3 aspirin [Aspirin Low Dose] 81 mg Tablet,Delayed Release (Dr/Ec) 81 mg PO DAILY RF: 0 Discontinued metoprolol tartrate 25 mg tablet 25 mg PO BID Qty: 180 RF: 3 Discharge Orders: Discharge Order (Routine); Ordered 04/16/20 Ordered By: Sudheer Dorantes/Other Patient Handouts: 2019-nCoV, COVID-19 Home Care Admission Data Admit Date/Time: 04/16/20 00:53 Attending Provider: Renato Carey Admit Provider: Sergo Pearson Primary Care Provider: Waleska Shepherd Other Providers: Sergo Pearson ; Frankie Cai. Other Interventions: Discharge Summary Assessment (RN) Last Done: 04/16/20 17:26 Coding Level of Care Code D/C Day Management >30 mins Diagnoses Atrial fibrillation with rapid ventricular response I48.91 Elevated troponin R77.8 Lab test positive for detection of COVID-19 virus U07.1 CAD in [place] artery I25.10 Hyperlipidemia E78.5 Severe obstructive sleep apnea G47.33 Anticoagulant long-term use Z79.01 Time Spent (min) 40
[2020-04-16] MEDS ORDERED: ATORVASTATIN 40 MG TAB PO SCH (21:00)
== END 2020-04-16 18:31 | disposition home or self-care (01) ==
LOC: ED 22:13 → EDINP 22:13 → SUATTDRO 04-16 00:53